=== PATIENT | male | born 1960 | race American Indian/Alaskan Native ===

== ENCOUNTER 2019-06-16 19:25 | Emergency (ER) | payer MEDICAID ==
[2019-06-16 20:03] VITALS: BP 129/79
--- NOTE | 2019-06-16 22:06 | Cat Scan Report ---
CT BRAIN: 06/16/2019 INDICATION / CLINICAL INFORMATION: fall, head injury. COMPARISON: None available. FINDINGS: BRAIN/INTRACRANIAL STRUCTURES: Unenhanced CT images of the brain demonstrate no evidence of acute int racranial abnormality. Ventricles and sulci are within normal limits of size and shape for a patient of this age. There is no evidence of hemorrhage or mass. There are no abnormal extra-axial fluid collections. EXTRACRANIAL STRUCTURES: Unremarkable. IMPRESSION: No acute abnormality. All CT scans at this location are performed using dose reduction to ALARA by means of automated expos ure control. Signer Name: Kervin Kamara MD Signed: 06/16/2019 10:01 PM Workstation Name: [id number]
--- NOTE | 2019-06-16 22:07 | Cat Scan Report ---
CT CERVICAL SPINE: INDICATION / CLINICAL INFORMATION: fall, head injury, neck pain. COMPARISON: None available. FINDINGS: CT images of the cervical spine were obtained. Images are evaluated in the axial, coronal, and sagitt al planes. There is no evidence of acute abnormality. Vertebral body alignment is well preserved. Some minimal degenerative changes are noted incidentally. LEVEL BY LEVEL ANALYSIS: . CRANIOCERVICAL JUNCTION: Unremarkable. PARASPINAL STRUCTURES: Unremarkable IMPRESSION: No acute abnormality. All CT scans at this location are performed using dose reduction to ALARA by means of automated expos ure control. Signer Name: Kervin Kamara MD Signed: 06/16/2019 10:02 PM Workstation Name: [id number]
--- NOTE | 2019-06-16 22:33 | Emergency Department Report ---
ED Fall HPI - General Chief Complaint: Fall Stated Complaint: FALL/HEAD/BODY PAIN Time Seen by Provider: 06/16/19 20:11 Source: patient, EMS Mode of arrival: Stretcher Limitations: No Limitations - History of Present Illness Initial Comments: 58-year-old male with a past medical history of hypertension, scoliosis, daily alcohol use. Multiple sclerosis, wheelchair-bound presents to the hospital after fall. Patient also patient was transferring from wheelchair to toilet. He fell striking his head. No LOC. Hematoma to right posterior scalp. Posit conor EtOH today and patient drinks daily. He denies history of alcohol withdrawal seizures or tremors. He denies nausea, vomiting, blurred vision, and has chronic leg weakness secondary to MS. Complains of bilateral neck pain as well as at time of my evaluation. C-collar placed after exam ED Review of Systems ROS: Stated complaint: FALL/HEAD/BODY PAIN Other details as noted in HPI Comment: All other systems reviewed and negative ED Past Medical Hx - Past Medical History Previous Medical History?: Yes Hx Hypertension: Yes Additional medical history: HLD; Scoliosis; MS - Surgical History Past Surgical History?: No - Social History Smoking Status: Never Smoker Substance Use Type: Alcohol ED Physical Exam - General Limitations: Physical Limitation - Other Other exam information: General: No acute distress Head: Right parietal scalp hematoma without laceration Eyes: normal appearance ENT: Moist mucous membranes Neck: Normal appearance, no midline tenderness, b/l sternocleidomastoid ten derness Chest: Clear to auscultation bilaterally CV: Regular rate and rhythm Abdomen: Soft, normal bowel sounds, nontender, nondistended, no rebound or guarding Back: Normal inspection Extremity: Normal inspection infection, full range of motion Neuro: Alert O x 3, no facial asymmetry, speech clear, no gross motor sensory deficit Psych: Appropriate behavior Skin: No rash ED Course Vital Signs 06/16/19 20:00 Pulse Rate 78 Respiratory 14 Rate Blood Pressure 129/79 O2 Sat by Pulse 96 Oximetry ED Medical Decision Making - Radiology Data Radiology results: report reviewed CT CERVICAL SPINE: INDICATION / CLINICAL INFORMATION: fall, head injury, neck pain. COMPARISON: None available. FINDINGS: CT images of the cervical spine were obtained. Images are evaluated in the axial, coronal, and sagittal planes. There is no evidence of acute abnormality. Vertebral body alignment is well preserved. Some minimal degenerative changes are noted incidentally. LEVEL BY LEVEL ANALYSIS: . CRANIOCERVICAL JUNCTION: Unremarkable. PARASPINAL STRUCTURES: Unremarkable IMPRESSION: No acute abnormality. CT BRAIN: 06/16/2019 INDICATION / CLINICAL INFORMATION: fall, head injury. COMPARISON: None available. FINDINGS: BRAIN/INTRACRANIAL STRUCTURES: Unenhanced CT images of the brain demonstrate no evidence of acute intracranial abnormality. Ventricles and sulci are within normal limits of size and shape for a patient of this age. There is no evidence of hemorrhage or mass. There are no abnormal extra-axial fluid collections. EXTRACRANIAL STRUCTURES: Unremarkable. IMPRESSION: No acute abnormality. - Medical Decision Making ct head and cervical spine unremarkable. no acute neuro deficit will be d/eduardo home - Differential Diagnosis ICH, fracture Critical Care Time: No Critical care attestation.: If time is entered above; I have spent that time in minutes in the direct care of this critically ill patient, excluding procedure time. ED Disposition Clinical Impression: Scalp hematoma, Fall, Neck muscle strain, Multiple sclerosis, Wheelchair bound Disposition: DC-01 TO HOME OR SELFCARE Is pt being admited?: No Does the pt Need Aspirin: No Condition: Stable Instructions: Fall Prevention for Older Adults (ED), Scalp Contusion in Adults (ED), Cervical Sprain (ED), At-Risk Alcohol Use (ED) Additional Instructions: Follow-up with your doctor or doctor/clinic provided. Return if symptoms worsen as indicated by your discharge instructions. Referrals: REBECA MCCAULEY MD [Staff Physician] - 3-5 Days Time of Disposition: 22:35
== END 2019-06-16 23:20 | disposition home or self-care (01) ==
LOC: ED 19:25
DX: S16.1XXA Strain of muscle, fascia and tendon at neck level, initial encounter (principal); S00.03XA Contusion of scalp, initial encounter; G35 Multiple sclerosis; I10 Essential (primary) hypertension; W05.0XXA Fall from non-moving wheelchair, initial encounter; Y93.89 Activity, other specified; Y92.89 Other specified places as the place of occurrence of the external cause; Y99.8 Other external cause status
CPT/HCPCS: 70450; 72125